=== PATIENT | male | born 1960 | race Caucasian/White ===

== ENCOUNTER → 2017-01-05 | Outpatient (CLI) | payer OTHER ==
[~2017-01-05] MED LIST: FEXO180T PO; HYDR1TAB8 OP; ONDAN4ODT PO; PHEN30TA37 PO; SULF1TAB38 PO
--- NOTE | 2017-01-05 14:08 | Diagnostic Imaging Report ---
Renal ultrasound. INDICATION: Follow-up right renal cyst. FINDINGS: The right kidney is 11.2 cm and the left kidney is 10.2 cm in length. There is no hydronephrosis. There is a cyst measuring 3.7 x 2.7 x 3.1 cm seen in the upper pole of the right kidney with lobulated margins and thickened wall. The wall is probably calcified. No internal vascularity or solid component otherwise is appreciated. The appearance and the overall size are similar to prior exams without significant change. The urinary bladder is not demonstrated on this exam. IMPRESSION: Stable 3.7 cm upper pole right renal cyst with thickened calcified wall, likely a complicated cyst. Dictated by: Dictated on workstation # [id number]
== END ==
LOC: RAD 11:05
PROVIDERS: ATTEND Urology
DX: N28.1 Cyst of kidney, acquired (principal)
CPT/HCPCS: 76770

== ENCOUNTER → 2019-06-06 | Outpatient (CLI) | payer OTHER ==
--- NOTE | 2019-06-06 16:49 | Diagnostic Imaging Report ---
EXAMINATION: US Retroperitoneal Complete. TECHNIQUE: Multiple real-time grayscale images were obtained over the kidneys in various projections bilaterally. HISTORY: RT RENAL CYST. COMPARISON: 01/05/2017. FINDINGS: The right kidney is normal in size measuring 10.3 x 5.6 x 5.2 cm. The echogenicity is normal. There is no hydronephrosis. No stones are seen. There is a peripherally calcified 3.0 x 2.7 x 3.8 cm right renal cyst. This is similar in size to prior exam. The left kidney is normal in size measuring 10.7 x 6.1 x 5.4 cm. The echogenicity is normal. There is no hydronephrosis. No stones are seen. No suspicious lesions. The urinary bladder is decompressed. Bilateral ureteral jets are not seen. IMPRESSION: 1. Stable peripherally calcified right renal cyst. This is stable since 2012 and can now be considered benign according to [employer] guidelines. Dictated by: Dictated on workstation # [id number]
== END ==
LOC: RAD 15:39
PROVIDERS: ATTEND Urology
DX: N28.1 Cyst of kidney, acquired (principal)
CPT/HCPCS: 76770

== ENCOUNTER 2021-02-19 06:33 | Outpatient (CLI) | payer OTHER ==
[~2021-02-19] VITALS: Ht 177.8 cm; Wt 74.8 kg
[2021-02-19] MEDS ORDERED: PHEN30TA37 PO (10:24)
[2021-02-19] MEDS ORDERED: FEXO-45 PO (10:24)
== END 2021-02-19 14:08 | disposition home or self-care (01) ==
LOC: PREOP 06:33
PROVIDERS: ATTEND Surgery
DX: Z01.818 Encounter for other preprocedural examination (principal)

== ENCOUNTER 2021-02-26 07:59 | Day surgery (SDC) | payer OTHER ==
[~2021-02-26] VITALS: Ht 177.8 cm; Wt 74.8 kg
[2021-02-26] VITALS (8 sets, daily range): BP systolic 102–130; BP diastolic 61–91
[~2021-02-26 07:59] MED LIST changes: +FEXO-45 PO
[2021-02-26] MEDS ORDERED: LACTATED RINGERS 1,000 ML IV STA (08:02)
[2021-02-26] MEDS ORDERED: LACTATED RINGERS 1,000 ML IV ONE (08:03)
--- NOTE | 2021-02-26 09:51 | Progress Note-Post Operative ---
Post-Operative Progess Note Surgeon (s)/Shift Stacker (s) Surgeon FRANCINE CHURCH DO Shift Stacker: na Pre-Operative Diagnosis Personal history of polyps. 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
--- NOTE | 2021-02-26 09:53 | Anesthesia-General Post-Op ---
MAC Patient Condition Mental Status/LOC: Same as Preop Cardiovascular: Satisfactory Nausea/Vomiting: Absent Respiratory: Satisfactory Pain: Controlled Complications: Absent Post Op Complications Complications None Follow Up Care/Instructions Patient Instructions None needed. Anesthesiology Discharge Order Discharge Order Patient is doing well, no complaints, stable vital signs, no apparent adverse anesthesia problems. No complications reported per nursing. SHANTEL LAMAR CRNA Feb 26, 2021 09:53
--- NOTE | 2021-02-26 09:54 | Discharge Inst-Simple/Standard ---
Discharge Inst-Standard Patient Instructions/Follow Up Plan of Care/Instructions/FU: 2-3 weeks Jolene Activity as Tolerated: Yes Discharge Diet: Regular Diet FRANCINE CHURCH DO Feb 26, 2021 09:54
--- NOTE | 2021-02-26 15:04 | OPERATIVE REPORT ---
DATE OF SERVICE: 02/26/2021 PREOPERATIVE DIAGNOSIS: Personal history of colon polyps. POSTOPERATIVE DIAGNOSIS: Colon polyps. PROCEDURE: Colonoscopy with hot biopsy polypectomy x2. SURGEON: Francine Fernández DO ANESTHESIA: Per LEACH TANK TENDER. ESTIMATED BLOOD LOSS: None. COMPLICATIONS: None. INDICATIONS: The patient is a 60-year-old male with history of colon polyps. He understands risks and benefits of procedure and wished to proceed with procedure. Consent was signed in the chart. DESCRIPTION OF PROCEDURE: The patient was taken to the endoscopy suite, placed in left lateral recumbent position. Timeout was performed. Digital rectal exam was performed. No palpable polyps, masses or ulcerations. Scope was inserted in the rectum, advanced all the way to cecum with minimal difficulty. Prep was adequate. Scope was then slowly retracted back. No polyps, masses or ulcerations within the cecum, ascending and transverse colon. Within the descending colon, a small polyp was present, which hot biopsy polypectomy was performed. Scope was then continuously slowly retracted back. No polyps, masses or ulcerations within the remainder of the descending colon and sigmoid colon, a small polyp was present, which hot biopsy polypectomy was performed. Scope was then continuously slowly retracted back in the rectum, it was also retroflexed noting some slight hemorrhoids. No other pathology. Scope was returned to its normal position, slowly withdrawn until completely removed. The patient tolerated procedure well without any complications, taken to recovery room in stable condition. RECOMMENDATIONS: The patient will follow up on pathology in 2 weeks. We will recommend repeat colonoscopy in 5 years. Any issues before that be seen at that time. Job ID: [id number] DocumentID: [id number] Dictated Date: 02/26/2021 09:58:36 Hr Business Partner Date: 02/26/2021 15:02:33 Dictated By: FRANCINE FERNÁNDEZ DO
== END 2021-02-26 10:35 | disposition home or self-care (01) ==
LOC: ENDO 07:59
PROVIDERS: ATTEND Surgery
DX: Z12.11 Encounter for screening for malignant neoplasm of colon (principal); D12.4 Benign neoplasm of descending colon; G40.909 Epilepsy, unspecified, not intractable, without status epilepticus; Z85.9 Personal history of malignant neoplasm, unspecified; Z79.899 Other long term (current) drug therapy; Z80.0 Family history of malignant neoplasm of digestive organs

== ENCOUNTER 2022-12-29 16:59 | Day surgery (SDC) | payer OTHER ==
[2022-12-29] VITALS (9 sets, daily range): BP systolic 116–152; BP diastolic 60–96
[~2022-12-29] VITALS: Ht 177.8 cm; Wt 75.3 kg
[~2022-12-29 16:59] MED LIST changes: -AMOX1TAB12 PO; -HOLD METFORMIN - RECEIVED CONTRAST 20 ML VIAL IV SCH; -IOHEXOL 350 MG/ML 100 ML (OMNIPAQUE 350) VIAL IV ONE; -NS 100 ML (IVPB) BAG IV ONE
[2022-12-29] MEDS ORDERED: LIDOCAINE PF 2% 5 ML (XYLOCAINE) VIAL ONE (17:00)
[2022-12-29] MEDS ORDERED: proPOfol 200 MG/20 ML (DIPRIVAN) VIAL IV ONE (17:00)
[2022-12-29] MEDS ORDERED: ONDANSETRON 4 MG/2 ML (SDV) Z0FRAN ONE (17:00)
[2022-12-29] MEDS ORDERED: SEVOFLURANE (ULTANE) 15 ML INHAL SOLN ONE ×2 (17:00→18:04)
[2022-12-29] MEDS ORDERED: MIDAZOLAM 2 MG/2 ML (VERSED) VIAL ONE (17:01)
[2022-12-29] MEDS ORDERED: fentaNYL INJ 100 MCG/2 ML AMP ONE (17:01)
[2022-12-29] MEDS ORDERED: metroNIDAZOLE 500MG/100ML IVPB 100 ML ONE (17:02)
[2022-12-29] MEDS ORDERED: ceFAZolin INJECTION 2,000 MG ONE (17:02)
[2022-12-29] MEDS ORDERED: BUP/EPI 0.5% 1:200,000 (SENSORCAINE) 30 ML VIAL ONE (17:02)
[2022-12-29] MEDS ORDERED: NS (IVPB) 50 ML ONE (17:03)
[2022-12-29] MEDS ORDERED: ceFAZolin INJECTION 2,000 MG in NS (IVPB) 50 ML IV ONE (17:15)
[2022-12-29] MEDS ORDERED: metroNIDAZOLE 500MG/100ML IVPB 100 ML IV ONE (17:15)
[2022-12-29] MEDS: LACTATED RINGERS 1,000 ML IV PRN ×2 (17:17→17:49)
[2022-12-29] MEDS ORDERED: BUP/EPI 0.5% 1:200,000 (SENSORCAINE) 30 ML VIAL INJ ONE (17:51)
[2022-12-29] MEDS ORDERED: ROCURONIUM 50 MG/5 ML (ZEMURON) VIAL IV ONE (18:04)
[2022-12-29] MEDS ORDERED: AMOX1TAB12 PO (18:09)
--- NOTE | 2022-12-29 18:10 | Discharge Inst-Simple/Standard ---
Discharge Inst-Standard Discharge Medications New, Converted or Re-Newed RX: Transmitted to Pharmacy Patient Instructions/Follow Up Plan of Care/Instructions/FU: 2 WEEKS RANJIT Activity as Tolerated: No Discharge Diet: Regular Diet Other Inst to Patient Follow up Appt: Make appointment for 2 week. Instructions: No lifting greater than 10 pounds. No strenuous activity. May shower in 24 hours, no tub bath or soaking. Use incentive spirometer at home as directed. No Smoking Skin/Wound Care: You have special glue over your incision that will fall off on it's own. Symptoms to Report: Appetite Changes, Extremity Discoloration, Numbness/Tingling, Swelling Increased, Bleeding Excessive, Eyesight Changes, Pain Increased, Urine Color Change, Constipation(Persistent), Fever over 101 degree F, Pain/Pressure in chest, Urinating Difficulty, Cough Up/Vomit Blood, Heart Beat Irreg/Pounding, Pain/Pressure in jaw, Vaginal Bleeding Increase, Cramps in feet or legs, Lightheadedness, Pain/Pressure in shoulder, Diarrhea(Persistent), Memory Changes Suddenly, Questions/Concerns, Weight gain consecutive days, Dizziness/Fainting, Nausea/Vomiting, Shortness of Breath, Weight gain over 2 pounds If questions or concerns contact your physician Or seek help at emergency department. FRANCINE CHURCH DO December 29, 2022 18:10
--- NOTE | 2022-12-29 18:11 | Progress Note-Post Operative ---
Post-Operative Progess Note Surgeon (s)/Diamond Saw Operator (s) Surgeon FRANCINE CHURCH DO Diamond Saw Operator: NA Pre-Operative Diagnosis ACUTE APPENDICITIS Post-Operative Diagnosis SAME Procedure & Operative Findings Date of Procedure 12/29/22 Procedure Performed/Findings PROCEDURE: Laparoscopic appendectomy. COMPLICATIONS: None. INDICATIONS: The patient is a 62 year old male who has been having right lower quadrant abdominal pain. Patient's exam consistent with appendicitis. I discussed risk and benefits of laparoscopic appendectomy and all indicated procedures with the possibility being a normal appendix. The patient understands the risks and benefits and wishes to proceed. Consent was signed on the chart. DESCRIPTION OF PROCEDURE: The patient was taken to the operating suite, prepped and draped in a sterile fashion. Timeout was performed. Local anesthetic was infiltrated just above the umbilicus and 11-blade scalpel was used to make a skin incision. Cautery was used to dissect down to the fascia and scored. Kochers were used to grasp and elevate it and the abdomen was then entered. A 0 Vicryl was placed in a [id number] fashion for closure at the end of the case. The balloon trocar was inserted into the abdomen and pneumoperitoneum was achieved. Under direct visualization of the laparoscope, a 5 mm trocar was placed in the suprapubic region and a 5 mm trocar was placed in the left lower quadrant. Appendix was located, inflamed and areas of necrotic appearing appendix. The base of the appendix was dissected around. Once at the base an Endo-CLAYTON 2.5 stapler was then fired across the base of the appendix. The mesoappendix was then divided. It was then placed in an Endobag and removed through the 12 mm trocar site. The abdomen was then irrigated and suctioned. No other pathology noted. The abdomen was then desufflated and the trocars were removed. The 0 Vicryl placed at the beginning of the case was then tied closing the 12 mm fascial defect. The skin was then closed using 4-0 Monocryl in a subcuticular fashion. The abdomen was then washed and dried and Skin Affix was placed over the incisions. The patient tolerated the procedure well without any complications and was taken to the recovery room in stable condition. Anesthesia Type general Estimated Blood Loss Estimated blood loss (mL): minimal Specimens/Packing Specimens Removed appendix FRANCINE CHURCH DO December 29, 2022 18:11
--- NOTE | 2022-12-29 18:28 | Anesthesia-General Post-Op ---
General Patient Condition Mental Status/LOC: Same as Preop Cardiovascular: Satisfactory Nausea/Vomiting: Absent Respiratory: Satisfactory Pain: Controlled Complications: Absent Post Op Complications Complications None Follow Up Care/Instructions Patient Instructions None needed. Anesthesia/Patient Condition Patient Condition Patient is doing well, no complaints, stable vital signs, no apparent adverse anesthesia problems. No complications reported per nursing. MESFIN WELSH CRNA December 29, 2022 18:28
[2022-12-29] MEDS ORDERED: LACTATED RINGERS 1,000 ML IV PRN (18:30)
[2022-12-29] MEDS ORDERED: fentaNYL INJ 100 MCG/2 ML AMP IVP ONE (18:30)
[2022-12-29] MEDS ORDERED: ONDANSETRON 4 MG/2 ML (SDV) Z0FRAN IVP PRN (18:30)
[2022-12-29] MEDS ORDERED: morphine INJ 10 MG/ML 1ML (SYR OR VIAL) IVP ONE (18:30)
[2022-12-29] MEDS ORDERED: MEPERIDINE (DEMEROL) INJ 50 MG/ML IVP ONE (18:30)
== END 2022-12-29 20:30 | disposition home or self-care (01) ==
LOC: SDC 16:59
PROVIDERS: ATTEND Surgery
DX: K35.80 Unspecified acute appendicitis (principal); Z85.828 Personal history of other malignant neoplasm of skin
CPT/HCPCS: 87081

== ENCOUNTER → 2022-12-29 | Outpatient (CLI) | payer OTHER ==
[~2022-12-29] MED LIST changes: +ACHD5005 PO; +AMOX1TAB12 PO; +DOCU-143 PO; +FEXO-338 PO; -FEXO-45 PO; +HOLD METFORMIN - RECEIVED CONTRAST 20 ML VIAL IV SCH; +IOHEXOL 350 MG/ML 100 ML (OMNIPAQUE 350) VIAL IV ONE; +NS 100 ML (IVPB) BAG IV ONE; +PHEN30TA45 PO
[2022-12-29 15:30] LABS: CREATININE SERUM 1.11 MG/DL (0.60-1.30)
--- NOTE | 2022-12-29 16:12 | Diagnostic Imaging Report ---
PROCEDURE: CT abdomen and pelvis with contrast. TECHNIQUE: Multiple contiguous axial images were obtained through the abdomen and pelvis after administration of intravenous contrast. Auto Exposure Controls were utilized during the CT exam to meet ALARA standards for radiation dose reduction. All CT scans use one or more of the following dose optimizing techniques: Automated exposure control, MA and/or KvP adjustment based on patient size and exam type or iterative reconstruction. INDICATION: Abdominal pain on the right side as well as vomiting and diarrhea. Comparison is made with prior CT from 05/16/2013. FINDINGS: Lung bases demonstrate some linear scarring or atelectasis in the right lower lobe. The liver and gallbladder are unremarkable. There is no biliary ductal dilatation. The pancreas and spleen are unremarkable. No adrenal mass is identified. Left kidney is unremarkable. The peripherally calcified cyst involving the right kidney appears stable when compared with study dating back to 2012. There is no hydronephrosis. Aorta is nonaneurysmal. The bowel loops are normal in caliber. The appendix is visualized in the right lower quadrant and is abnormally dilated and thick walled. There is a moderate amount of periappendiceal inflammation, and findings are consistent with acute appendicitis. There is an appendicolith located within the appendix as well. No abscess formation or bowel obstruction is seen. There is no free fluid. Bladder is decompressed. Prostate is unremarkable. IMPRESSION: 1. Features consistent with acute appendicitis without evidence of perforation, abscess, or bowel obstruction. There is an appendicolith located within the appendix. 2. Stable peripherally calcified right renal cyst. Results were discussed with Dr. Joaquin Campoverde prior to this dictation. Dictated by: Dictated on workstation # [id number]
== END ==
LOC: RAD 13:21
PROVIDERS: ATTEND Family Medicine
DX: N28.1 Cyst of kidney, acquired (principal); R19.7 Diarrhea, unspecified; R11.10 Vomiting, unspecified
CPT/HCPCS: 36415; 74177; 82565; 84520